=== PATIENT | male | born 1945 | race Caucasian/White ===

== ENCOUNTER → 2024-02-27 15:02 | Outpatient (REF) | payer MEDICARE, SELFPAY | LOC: DHSLP 15:02 | PROVIDERS: ATTENDING PHYSICIAN Internal Medicine Geriatric Medicine | DX: G47.33 Obstructive sleep apnea (adult) (pediatric) (principal); G47.61 Periodic limb movement disorder | CPT/HCPCS: 95810 ==

== ENCOUNTER → 2024-04-24 15:37 | Outpatient (REF) | payer MEDICARE, SELFPAY | LOC: RAD 15:37 | PROVIDERS: ATTENDING PHYSICIAN Family Medicine; FAMILY PHYSICIAN Internal Medicine Geriatric Medicine | DX: R09.89 Other specified symptoms and signs involving the circulatory and respiratory systems (principal) | CPT/HCPCS: 71046 ==

== ENCOUNTER → 2024-04-28 09:40 | Outpatient (REF) | payer MEDICARE, SELFPAY ==
[2024-04-30 18:18] LABS: % Free Testosterone 1.2 % (1.6-2.9); Free Testosterone 12 pg/mL (47-244); Sex Hormone Binding Globulin 60 nmol/L (19-76); Total Testosterone 106 ng/dL (300-720)
== END ==
LOC: OLABPV 09:40
PROVIDERS: ATTENDING PHYSICIAN Family Medicine Geriatric Medicine
DX: C61 Malignant neoplasm of prostate (principal); Z79.818 Long term (current) use of other agents affecting estrogen receptors and estrogen levels
CPT/HCPCS: 36415; 84153; 84270; 84402; 84403

== ENCOUNTER → 2025-02-03 11:46 | Outpatient (REF) | payer MEDICARE, SELFPAY ==
[2025-02-03 13:06] LABS: Hematocrit 37.1 % (39.0-52.0); Hemoglobin 12.5 g/dL (13.0-18.0); Mean Corp Hgb Conc. 33.7 g/dL (33.0-37.0); Mean Corpuscular Volume 90.9 fL (80.0-94.0); Nucleated Red Blood Cells % 0 % (-); Platelet Count 237 10^3/uL (130-400); Red Cell Dist. Width 12.0 % (11.5-14.5)
[2025-02-03 13:25] LABS: ALT (SGPT) 16 U/L (0-50); AST (SGOT) 22 U/L (17-59); Albumin 4.3 g/dl (3.5-5.0); Alkaline Phosphatase 64 U/L (38-126); Blood Urea Nitrogen 25 mg/dl (9-20); Calcium 9.5 mg/dl (8.4-10.2); Carbon Dioxide 25 mmol/L (22-30); Chloride 107 mmol/L (98-107); Glucose 95 mg/dl (70-99); HDL Cholesterol 95 mg/dl; LDL Cholesterol, Calculated 94 mg/dl; Potassium 4.8 mmol/L (3.5-5.1); Sodium 139 mmol/L (135-145); Total Protein 6.7 g/dl (6.3-8.2); Very Low Density Lipoprotein 16 mg/dl (0-30); eGFR > 60.00
[2025-02-03 13:39] LABS: Vitamin D, 25-OH*** 52.5 ng/mL (30-80)
[2025-02-03 13:53] LABS: PSA, Total - Diagnostic 0.15 ng/ml (0.0-4.0)
== END ==
LOC: OLABPV 11:46
PROVIDERS: ATTENDING PHYSICIAN Specialist; FAMILY PHYSICIAN Internal Medicine Geriatric Medicine
DX: C61 Malignant neoplasm of prostate (principal); E55.9 Vitamin D deficiency, unspecified; E78.2 Mixed hyperlipidemia; G47.33 Obstructive sleep apnea (adult) (pediatric); Z23 Encounter for immunization; Z13.31 Encounter for screening for depression; F33.40 Major depressive disorder, recurrent, in remission, unspecified
CPT/HCPCS: 36415; 80053; 80061; 82306; 84153; 84270; 84402; 84403; 85025

== ENCOUNTER → 2025-02-04 09:47 | Outpatient (REF) | payer MEDICARE, SELFPAY ==
[2025-02-04 11:53] LABS: Urine Character Clear (Clear)
== END ==
LOC: OLABPV 09:47
PROVIDERS: ATTENDING PHYSICIAN Internal Medicine Geriatric Medicine
DX: E55.9 Vitamin D deficiency, unspecified (principal); E78.2 Mixed hyperlipidemia; G47.33 Obstructive sleep apnea (adult) (pediatric); Z23 Encounter for immunization; Z13.31 Encounter for screening for depression; F33.40 Major depressive disorder, recurrent, in remission, unspecified; Z00.00 Encounter for general adult medical examination without abnormal findings
CPT/HCPCS: 81003

== ENCOUNTER → 2025-02-12 11:30 | Outpatient (REF) | payer MEDICARE, SELFPAY ==
[2025-02-12 13:46] LABS: Hematocrit 37.7 % (39.0-52.0); Hemoglobin 12.6 g/dL (13.0-18.0); Mean Corp Hgb Conc. 33.4 g/dL (33.0-37.0); Mean Corpuscular Volume 90.2 fL (80.0-94.0); Nucleated Red Blood Cells % 0 % (-); Platelet Count 233 10^3/uL (130-400); Red Cell Dist. Width 12.1 % (11.5-14.5)
[2025-02-12 14:25] LABS: PSA, Total - Diagnostic 0.14 ng/ml (0.0-4.0)
== END ==
LOC: OLABPV 11:30
PROVIDERS: ATTENDING PHYSICIAN Specialist; FAMILY PHYSICIAN Internal Medicine Geriatric Medicine
DX: D64.9 Anemia, unspecified (principal); C61 Malignant neoplasm of prostate
CPT/HCPCS: 36415; 84153; 84403; 85025